=== PATIENT | male | born 1960 | race Caucasian/White ===

== ENCOUNTER 2017-04-08 12:07 | Emergency (ER) | payer OTHER ==
[~2017-04-08 12:07] MED LIST: ACCUPRIL40 MG PO; ASPIRIN325 PO; CENTRUM SILVER1 EAC4 PO; CIALIS10 MG PO; FISH OIL + D31 EACH PO; GLUCOSAMINE HC500 MG PO; HYDROCHLOROTHIA25 M2 PO; KLOR-CON 1010 MEQ PO; LIPITOR 20 MG T20 M1 PO; METFORMIN HCL500 MG PO; METOPROLOL SUC100 MG PO; MOBIC15 MG PO; PRADAXA150 MG PO; SORINE 80 MG TA80 M1 PO; STRATTERA100 MG PO; WELLBUTRIN SR150 MG PO; ZETIA10 MG PO
== END 2017-04-08 12:23 ==
LOC: ER 12:07
DX: I46.9 Cardiac arrest, cause unspecified (principal); I11.9 Hypertensive heart disease without heart failure; I48.91 Unspecified atrial fibrillation; E11.9 Type 2 diabetes mellitus without complications; I25.10 Atherosclerotic heart disease of native coronary artery without angina pectoris; F41.9 Anxiety disorder, unspecified; E78.00 Pure hypercholesterolemia, unspecified; M19.90 Unspecified osteoarthritis, unspecified site; Z95.5 Presence of coronary angioplasty implant and graft; Z79.82 Long term (current) use of aspirin